=== PATIENT | male | born 1955 ===

== ENCOUNTER 2017-12-23 20:50 | Emergency (ER) | payer OTHER ==
[2017-12-23 20:54] VITALS: RESP 16; TEMP 97.8; O2SAT 97
[2017-12-23 21:30] LABS: BASO # 0.1 K/uL (0.0-0.2); BASO % 0.7 % (0.0-2.0); EOS % 0.4 % (0.0-4.0); HEMOGLOBIN 13.8 g/dL (12.0-18.0); LYMPH # 0.7 K/uL (1.0-4.3); LYMPH % 9.1 % (20.0-40.0); MEAN CELL VOLUME 93.9 fl (80.0-94.0); MEAN CORPUSCULAR HEMOGLOBIN 32.6 pg (27.0-31.0); MEAN CORPUSCULAR HGB CONC 34.7 g/dL (33.0-37.0); MONO # 0.5 K/uL (0.0-0.8); NEUT # 6.4 K/uL (1.8-7.0); NEUT % 82.8 % (50.0-75.0); PLATELET COUNT 255 K/uL (130-400); RBC 4.23 Mil/uL (4.40-5.90); RED CELL DISTRIBUTION WIDTH 14.2 % (11.5-14.5); WHITE BLOOD COUNT 7.8 K/uL (4.8-10.8)
[2017-12-23 21:36] LABS: ALB/GLOB RATIO 1.3 (1.0-2.1); ALBUMIN 4.7 g/dL (3.5-5.0); ALT/SGPT 34 U/L (21-72); AST/SGOT 39 U/L (17-59); BLOOD UREA NITROGEN 20 mg/dl (9-20); CALCIUM 9.4 mg/dL (8.4-10.2); GFR NON-AFRICAN AMERICAN 56; LIPASE 118 U/L (23-300)
--- NOTE | 2017-12-23 21:53 | ED PDOC ---
HPI: General Adult Time Seen by Provider: 12/23/17 20:58 Chief Complaint (Nursing): Back Pain Chief Complaint (Provider): Left Flank Pain History Per: Patient History/Exam Limitations: no limitations Onset/Duration Of Symptoms: Mins ([employer]) Current Symptoms Are (Timing): Still Present Additional Complaint(s): 62 year old male with a history of htn presents to the ED with left, sharp, stabbing flank pain onset [employer]. Patient reports pain radiates to testicles. He states he had x5 episodes of diarrhea today, but denies vomiting and nausea. PMD: Dr. Chapin Past Medical History Reviewed: Historical Data, Nursing Documentation, Vital Signs Vital Signs: Last Vital Signs Temp 97.8 F 12/23/17 20:51 Pulse 82 12/23/17 23:12 Resp 16 12/23/17 20:51 BP 151/82 H 12/23/17 23:12 Pulse Ox 97 12/23/17 22:28 - Medical History PMH: Fractures (lt. leg yrs. ago), HTN - Surgical History Surgical History: No Surg Hx - Family History Family History: States: Unknown Family Hx - Social History Current smoker - smoking cessation education provided: No Ex-Smoker (has not smoked in the last 12 months): No Alcohol: Occasional Drugs: Denies - Home Medications Home Medications: Ambulatory Orders Medication Instructions Recorded Amlodipine Besylate 2.5 mg PO DAILY 09/27/14 Naproxen 500 mg PO 09/27/14 Tamsulosin [Flomax] 0.4 mg PO DAILY #10 cap 12/23/17 traMADol [Ultram] 50 mg PO Q6 #9 tab 12/23/17 - Allergies Allergies/Adverse Reactions: Allergies Allergy/AdvReac Type Severity Reaction Status Date / Time No Known Allergies Allergy Verified 12/23/17 20:53 Review of Systems ROS Statement: Except As Marked, All Systems Reviewed And Found Negative Gastrointestinal: Positive for: Diarrhea (x5). Negative for: Nausea, Vomiting Genitourinary Male: Positive for: Other (left flank pain ) Physical Exam - Reviewed Nursing Documentation Reviewed: Yes Vital Signs Reviewed: Yes - Physical Exam Appears: Positive for: Non-toxic, No Acute Distress Head Exam: Positive for: ATRAUMATIC, NORMOCEPHALIC Skin: Positive for: Normal Color, Warm, Dry Eye Exam: Positive for: Normal appearance, EOMI, PERRL ENT: Positive for: Normal ENT Inspection Neck: Positive for: Normal Cardiovascular/Chest: Positive for: Regular Rate, Rhythm. Negative for: Murmur Respiratory: Positive for: Normal Breath Sounds. Negative for: Respiratory Distress Gastrointestinal/Abdominal: Positive for: Normal Exam, Soft. Negative for: Tenderness Extremity: Positive for: Normal ROM (upper and lower) Neurologic/Psych: Positive for: Alert, Oriented (x3) - Laboratory Results Result Diagrams: 12/23/17 21:25 12/23/17 21:25 - ECG O2 Sat by Pulse Oximetry: 97 (RA) Pulse Ox Interpretation: Normal Medical Decision Making Medical Decision Making: Time: 2100 Initial Impression: 62 year old with flank and abdominal pain in setting of diarrheal illness Initial Plan: --IV toradol --CT abdomen and pelvis Time: 22:27 CT abdomen and pelvis FINDINGS: Lung bases: No consolidation. ABDOMEN: Liver: Unremarkable. Gallbladder and bile ducts: Unremarkable. No calcified stones. No ductal dilation. Pancreas: Unremarkable. No ductal dilation. Spleen: Unremarkable. No splenomegaly. Adrenals: Unremarkable. No mass. Kidneys and ureters: 3-4 mm calculus in the distal left ureter without significant proximal hydroureteronephrosis. There is associated perinephric/periureteral fat stranding, likely related to passage of calculus. Superimposed infection is not excluded. Clinical correlation is recommended. Stomach and bowel: Diverticulosis of the distal small bowel without evidence of diverticulitis. PELVIS: Appendix: No findings to suggest acute appendicitis. Bladder: Partially contracted Reproductive: Unremarkable as visualized. ABDOMEN and PELVIS: Intraperitoneal space: Unremarkable. No free air. No drainable fluid collection. Bones/joints: Spondylosis. Soft tissues: Unremarkable. Vasculature: Atherosclerotic calcifications. No abdominal aortic aneurysm. Lymph nodes: Unremarkable. No enlarged lymph nodes. IMPRESSION: 3-4 mm calculus in the distal left ureter without significant proximal hydroureteronephrosis. There is associated perinephric/periureteral fat stranding, likely related to passage of calculus. Superimposed infection is not excluded. Clinical correlation is recommended. 23:30 --Labs reviewed and reveal no clinically significant abnormalities. Patient reports improvement of symptoms and is stable upon discharge. Diagnosis is uteral calculus. Given rx for Ultram and Flomax and referral to urologist. Scribe Attestation: Documented by Yeny Marquez, acting as a scribe for Kentrell Grissom MD Provider Scribe Attestation: All medical record entries made by the Scribe were at my direction and personally dictated by me. I have reviewed the chart and agree that the record accurately reflects my personal performance of the history, physical exam, medical decision making, and the department course for this patient. I have also personally directed, reviewed, and agree with the discharge instructions and disposition. Disposition - Clinical Impression Clinical Impression: Ureteral calculus - Patient ED Disposition Is Patient to be Admitted: No - Disposition Referrals: Law Vines Jr., MD [Staff Provider] - Disposition: Routine/Home Disposition Time: 23:30 Condition: STABLE Additional Instructions: RHETT TALAMANTES, thank you for letting us take care of you today. Your provider was Kentrell Grissom MD and you were treated for LOWER BACK PAIN/DIARRHEA. The emergency medical care you received today was directed at your acute symptoms. If you were prescribed any medication, please fill it and take as directed. It may take several days for your symptoms to resolve. Return to the Emergency Department if your symptoms worsen, do not improve, or if you have any other problems. Please contact your doctor or call one of the physicians/clinics you have been referred to that are listed on the Patient Visit Information form that is included in your discharge packet. Bring any paperwork you were given at discharge with you along with any medications you are taking to your follow up visit. Our treatment cannot replace ongoing medical care by a primary care provider outside of the emergency department. Thank you for allowing the [facility] team to be part of your care today. If you had an X-Ray or CT scan: A Radiologist will review the ED reading if any change in treatment is needed we will contact you. If you had a blood, urine, or wound culture: It will take several days for the results, if any change in treatment is needed we will contact you. If you had an STI test: It will take 48 hours for the results. Please call after 1 week if you have not heard back. Prescriptions: Tamsulosin [Flomax] 0.4 mg PO DAILY #10 cap traMADol [Ultram] 50 mg PO Q6 #9 tab Instructions: Kidney Stones in Adults Forms: [facility] (Sammarinese) Print Language: MOZAMBICAN
[2017-12-23 21:58] LABS: SQUAMOUS EPITHIAL < 1 /hpf (0-5); URINE BACTERIA RARE (<OCC); URINE BILIRUBIN NEGATIVE (NEGATIVE); URINE BLOOD SMALL (NEGATIVE); URINE CLARITY SLIGHTY-CLOUDY (Clear); URINE COLOR YELLOW (YELLOW); URINE GLUCOSE (UA) NEG (Normal); URINE LEUKOCYTE ESTERASE NEG Leu/uL (Negative); URINE PROTEIN 100 mg/dL (NEGATIVE); URINE UROBILINOGEN 0.2-1.0 mg/dL (0.2-1.0)
[2017-12-23 22:34] LABS: BANDS 1 % (0-2); LYMPHOCYTE 10 % (20-50); MONOCYTE 7 % (0-10); NEUTROPHIL 82 % (42-75); PLATELET ESTIMATE NORMAL (NORMAL); TOTAL CELLS COUNTED 100
[2017-12-23 23:13] VITALS: BP 151/82; PULSE 82
--- NOTE | 2017-12-24 08:58 | CARD ---
APPROVED REPORT Date of service: 12/23/2017 <Conclusion> Sinus rhythm with premature supraventricular complexes Nonspecific T wave abnormality Abnormal ECG
--- NOTE | 2017-12-24 12:38 | CT ---
PROCEDURE: CT Abdomen and Pelvis without Oral or IV contrast. HISTORY: renal colic COMPARISON: None available TECHNIQUE: Contiguous axial images of the abdomen and pelvis. No oral or IV contrast administered. Coronal and Sagittal reformats generated. Radiation dose: Total exam DLP = 619.92 mGy-cm. This CT exam was performed using one or more of the following dose reduction techniques: Automated exposure control, adjustment of the mA and/or kV according to patient size, and/or use of iterative reconstruction technique. FINDINGS: There is limited evaluation of the solid organs without the administration of IV contrast. LOWER THORAX: 3 mm right middle lobe calcified granuloma. There is no visible focal consolidation, pleural effusion, or pneumothorax. LIVER: Punctate hepatic calcifications, likely granulomas. GALLBLADDER AND BILE DUCTS: Decompressed gallbladder appears otherwise unremarkable. PANCREAS: Unremarkable. SPLEEN: 5 mm probable splenule. Splenic calcifications, likely granulomas. ADRENALS: Unremarkable. KIDNEYS AND URETERS: 5 mm distal left ureteral calculus (series 3, image 162) with mild proximal hydroureter. No right-sided hydronephrosis or obstructing calculus evident. BLADDER: The urinary bladder appears unremarkable. REPRODUCTIVE: The prostate gland measures approximately 4.0 x 4.1 cm and contains calcifications. APPENDIX: The appendix appears within normal limits of caliber. No secondary signs of acute appendicitis. BOWEL: The stomach is nondistended. Lack of oral contrast limits evaluation for bowel pathology. The bowel loops appear within normal limits of caliber without evidence of intestinal obstruction. Diverticulosis without CT evidence of acute diverticulitis. PERITONEUM: No significant free fluid. No definite free air. LYMPH NODES: No bulky lymphadenopathy identified. VASCULATURE: Atherosclerotic calcifications. No aortic aneurysm. BONES: Spondylosis. OTHER FINDINGS: None. IMPRESSION: 5 mm distal left ureteral calculus with mild proximal hydroureter. No right-sided hydronephrosis or obstructing calculus evident. Preliminary impression was provided by virtual radiologic.
== END 2017-12-23 23:55 | disposition home or self-care (01) ==
LOC: H.ER 20:50
DX: N20.1 Calculus of ureter (principal); I10 Essential (primary) hypertension
CPT/HCPCS: 74176; 80053; 81003; 83690; 85025; 93005; 96374; 99284; J1885